=== PATIENT | female | born 1945 | race Caucasian/White ===

== ENCOUNTER → 2018-06-21 08:42 | Outpatient (CLI) | payer MEDICARE, SELFPAY ==
[2018-06-21 09:43] LABS: Cholesterol 189 mg/dL (140-199); Glucose 93 mg/dL (80-110); HDL Cholesterol 37 mg/dL (40-60); LDL Cholesterol Calculated 110 mg/dL (<100); Triglycerides 209 mg/dL (35-150)
[2018-06-21 11:32] LABS: Hep C Virus Ab w/Reflex Quant NEGATIVE s/c (NEGATIVE)
== END ==
PROVIDERS: PCP Family Medicine; Visit Provider Family Medicine
DX: E03.9 Hypothyroidism, unspecified (principal); Z13.1 Encounter for screening for diabetes mellitus; Z11.59 Encounter for screening for other viral diseases; Z13.220 Encounter for screening for lipoid disorders
CPT/HCPCS: 36415; 80061; 82947; 84443; 86803

== ENCOUNTER → 2018-09-17 09:02 | Outpatient (CLI) | payer MEDICARE, SELFPAY | PROVIDERS: PCP Family Medicine; Visit Provider Family Medicine | DX: E03.9 Hypothyroidism, unspecified (principal) | CPT/HCPCS: 36415; 84443 ==

== ENCOUNTER → 2018-12-17 08:08 | Outpatient (CLI) | payer MEDICARE, SELFPAY | PROVIDERS: PCP Family Medicine; Visit Provider Family Medicine | DX: E03.9 Hypothyroidism, unspecified (principal) | CPT/HCPCS: 36415; 84443 ==

== ENCOUNTER → 2019-12-07 09:27 | Outpatient (CLI) | payer MEDICARE, SELFPAY ==
[2019-12-07 10:00] LABS: Add Manual Diff / Slide Review NO; Basophils Absolute Auto 100 /uL (0-100); Basophils Percent Auto 0.9 % (0-2); Eosinophils Absolute Auto 400 /uL (0-450); Eosinophils Percent Auto 5.3 % (2-4); Hematocrit 38.1 % (36-46); Lymphocytes Absolute Auto 1800 /uL (1100-4500); Lymphocytes Percent Auto 27.6 % (25-40); Mean Corpuscular HGB Conc 34.2 % (30-36); Mean Corpuscular Hemoglobin 30.4 PG (26-34); Monocytes Absolute Auto 600 /uL (0-900); Monocytes Percent Auto 8.4 % (3-14); Neutrophils Absolute Auto 3800 /uL (1500-7000); Neutrophils Percent Auto 57.8 % (50-75); Platelet Count 211 X10^3/uL (150-400); Red Blood Cell Count 4.28 X10^6/uL (4.0-5.2); Red Cell Distribution Width 13.8 % (11.6-14.8); White Blood Cell Count 6.6 X10^3/uL (4.5-11.0)
[2019-12-07 11:17] LABS: Alanine Aminotransferase 24 IU/L (<35); Albumin Globulin Ratio 1.5 (1.0-2.8); Alkaline Phosphatase 76 U/L (38-126); Amylase 48 U/L (30-110); Aspartate Aminotransferase 31 IU/L (14-36); BUN Creatinine Ratio 15.6 (6-22); Bilirubin Total 0.6 mg/dL (0.2-1.3); Blood Urea Nitrogen 17 mg/dL (7-17); Calcium 9.2 mg/dL (8.4-10.2); Carbon Dioxide 28 mmol/L (22-32); Chloride 107 mmol/L (98-107); Estimated Glomerular Filt Rate 48.8 mL/min (>60); Globulin 2.7 g/dL (1.7-4.1); Glucose 90 mg/dL (80-110); HEMOLYSIS < 15 (0-50); Lipase 15 U/L (23-300); Potassium 4.5 mmol/L (3.4-5.1); Sodium 138 mmol/L (137-145); Total Protein 6.7 g/dL (6.3-8.2)
[2019-12-07 11:45] LABS: TSH w/ Reflex to FT4 0.45 uIU/mL (0.47-4.68)
[2019-12-07 12:19] LABS: Free T4, Direct Thyroxine 0.83 ng/dL (0.78-2.19)
== END ==
PROVIDERS: PCP Internal Medicine; Referring Provider Internal Medicine; Visit Provider Internal Medicine
DX: K21.0 Gastro-esophageal reflux disease with esophagitis (principal); E03.9 Hypothyroidism, unspecified
CPT/HCPCS: 36415; 80053; 82150; 83690; 84439; 84443; 85025

== ENCOUNTER 2022-07-01 11:08 | Emergency (ER) | payer OTHER, SELFPAY ==
[2022-07-01] VITALS (14 sets, daily range): BP systolic 169–200; BP diastolic 84–112; PULSE 63–73; RESP 16–28; TEMP 36.4; O2SAT 96–99; BMI 25.7
--- NOTE | 2022-07-01 11:38 | ED.HA ---
HPI - Headache General Chief Complaint: Headache Stated Complaint: tunnel vision/pressure in head/dizzy 1 hour ago Time Seen by Provider: 07/01/22 11:25 Mode of arrival: Ambulatory History of Present Illness HPI Narrative: Patient is a 76-year-old healthy female history of asthma presenting today right-sided blurry vision dizziness and headache. She reports that she was moving heavy [employer] machine while at work. She suddenly got some right partial blurry vision no loss of vision she then developed dizziness and headache. She sat down symptoms lasted for about 30 minutes and then resolved. She still has a mild headache. No numbness tingling or weakness no nausea vomiting no facial droop or difficulty speaking. She is now really only complaining of mild headache. He denies any curtain falling over her vision no blackness or any loss of vision. She denies any double vision. Related Data Home Medications Medication Instructions Recorded Confirmed sumatriptan succinate 50 mg tablet 50 mg PO Q2-4H PRN 06/09/18 06/09/18 (Imitrex) Previous Rx's Medication Instructions Recorded doxepin 25 mg capsule 50 mg PO DAILY #180 caps 08/10/19 levothyroxine 50 mcg tablet See Rx Instructions .Route 11/04/19 .COMPLEX #23 tabs fluticasone 250 mcg-salmeterol 50 See Rx Instructions .Route 01/04/20 mcg/dose blistr powdr for .COMPLEX #60 ea inhalation (Advair Diskus) Allergies Allergy/AdvReac Type Severity Reaction Status Date / Time prochlorperazine AdvReac Intermediate agitation Verified 07/01/22 11:22 [From Compazine] Review of Systems Review of Systems ROS Unobtainable: All systems reviewed & are unremarkable except as noted in HPI and below Patient History Medical History Asthma (~1949) Chicken pox (~1961) Hypothyroidism (~2009) Measles (~5) Mumps (~1954) Skin problem (~1999) Surgical History Anesthesia Cataract (~2009) History of hysterectomy (~1993) Status post LASIK surgery (~1998) Family History Mother Cancer Diabetes mellitus Heart disease Mental health problem Grandfather Diabetes mellitus Social History Smoking Status: Former smoker Smoking Status: Former smoker alcohol intake frequency: holidays/special occasions only Substance Use Type: does not use Exam Initial Vital Signs Initial Vital Signs: Vital Signs Temperature 97.5 F L 07/01/22 11:17 Pulse Rate 73 07/01/22 11:17 Respiratory Rate 16 07/01/22 11:17 Blood Pressure 200/103 H 07/01/22 11:17 Pulse Oximetry 98 07/01/22 11:17 Oxygen Delivery Method Room Air 07/01/22 11:17 GENERAL: Alert pleasant well-appearing 76-year-old female and in no acute distress. HEENT: Head atraumatic,EOMI, pupils reactive, face symmetric, moist mucous membranes CARDIOVASCULAR: Regular rate and rhythm without murmurs, rubs or gallops. RESPIRATORY: Breath sounds equal bilaterally, no wheezes rales or rhonchi. ABDOMEN: Soft, nontender. Normoactive bowel sounds all 4 quadrants. No guarding or rebound. EXTREMITIES: Normal range of motion, no clubbing or edema. Neurovascularly intact NEUROLOGICAL: Alert and oriented x4.Normal gait and speech. Cranial nerves II through XII grossly intact. Good dbwqry-ye-afvn, good jckb-or-iiro, strength equal bilaterally, no dysarthria or aphasia, sensation in tact to soft touch bilaterally, no visual changes, no facial droop SKIN: Warm, dry, no laceration, no petechiae, no rashes or lesions. Scores NIH Stroke Scale Level of Conciousness: Alert, keenly responsive Ask month/age: Answers both questions correctly. Open/close eyes, close hand: Performs both tasks correctly Best gaze horizontal: Normal Visual parker: No visual loss Facial palsy: Normal symetrical movement Left arm drift: No drift for full 10 sec Right arm drift: No drift for full 10 sec Left leg drift: No drift for full 5 sec Right leg drift: No drift for full 5 sec Limb ataxia: Absent Sensory on face/arms/legs: Normal, no sensory loss Best language: No aphasia, normal Dysarthria: Normal Extinction or inattention: No abnormality Total NIH Stroke scale score: 0 Course Orders Ordered: ED Orders 07/01/22 11:32 EKG-12 Lead Routine EKG-12 Lead Stat 07/01/22 11:40 Complete Blood Count AUTO DIFF Stat Comprehensive Metabolic Panel Stat Ethanol (ETOH) Stat PTT Partial Thromboplastin Vikash Stat Prothrombin Time INR Stat Troponin & CK Cardiac Panel Stat 07/01/22 11:49 CT angio head and neck Stat 07/01/22 12:19 COVID19 -Nasal RAPID Stat Vital Signs Vital signs: Vital Signs - 8 hr 07/01/22 11:17 07/01/22 11:20 07/01/22 11:21 Temperature 97.5 F L Pulse Rate 73 Respiratory Rate 16 Blood Pressure 200/103 H 200/103 H Pulse Oximetry 98 98 Oxygen Delivery Method Room Air 07/01/22 11:21 07/01/22 11:30 07/01/22 11:30 Temperature Pulse Rate 70 70 Respiratory Rate 28 H Blood Pressure 169/104 H Pulse Oximetry 98 97 Oxygen Delivery Method Room Air 07/01/22 12:00 07/01/22 12:00 07/01/22 12:26 Temperature Pulse Rate 66 73 Respiratory Rate 17 24 Blood Pressure 187/84 H Pulse Oximetry 96 98 Oxygen Delivery Method 07/01/22 12:26 07/01/22 12:30 07/01/22 12:31 Temperature Pulse Rate 67 68 Respiratory Rate 25 H 23 Blood Pressure 190/105 H Pulse Oximetry 96 96 Oxygen Delivery Method 07/01/22 12:31 07/01/22 13:00 07/01/22 13:00 Temperature Pulse Rate 65 Respiratory Rate 20 Blood Pressure 188/88 H 181/85 H Pulse Oximetry 97 Oxygen Delivery Method 07/01/22 13:30 07/01/22 13:30 07/01/22 13:44 Temperature Pulse Rate 67 73 Respiratory Rate 18 27 H Blood Pressure 181/97 H Pulse Oximetry 96 97 Oxygen Delivery Method 07/01/22 13:44 07/01/22 14:00 07/01/22 14:01 Temperature Pulse Rate 65 65 Respiratory Rate 24 22 Blood Pressure 188/112 H Pulse Oximetry 97 99 Oxygen Delivery Method 07/01/22 14:01 07/01/22 14:13 07/01/22 14:13 Temperature Pulse Rate 63 Respiratory Rate 17 Blood Pressure 172/90 H 176/105 H Pulse Oximetry 98 Oxygen Delivery Method MDM - Headache Lab Data 07/01/22 11:40 07/01/22 11:40 Labs: Lab Results 07/01/22 07/01/22 07/01/22 Range/Units 11:40 11:40 11:40 WBC 8.1 (4.5-11.0) X10^3/uL RBC 4.39 (4.0-5.2) X10^6/uL Hgb 12.8 (12.0-16.0) g/dL Hct 38.5 (36-46) % MCV 87.8 (80-100) fL MCH 29.2 (26-34) PG MCHC 33.3 (30-36) % RDW 13.5 (11.6-14.8) % Plt Count 222 (150-400) X10^3/uL Neut % (Auto) 62.9 (50-75) % Lymph % (Auto) 26.5 (25-40) % [place] % (Auto) 6.7 (3-14) % Eos % (Auto) 2.8 (2-4) % Baso % (Auto) 1.1 (0-2) % Neut # (Auto) 5100 (6069-3752) /uL Lymph # (Auto) 2200 (4776-7869) /uL [place] # (Auto) 500 (0-900) /uL Eos # (Auto) 200 (0-450) /uL Baso # (Auto) 100 (0-100) /uL PT 11.2 (10.1-12.7) SECONDS INR 1.0 (0.9-1.3) APTT 31 (26-36) SECONDS Sodium 137 (137-145) mmol/L Potassium 4.1 (3.4-5.1) mmol/L Chloride 104 (98-107) mmol/L Carbon Dioxide 25 (22-32) mmol/L BUN 25 H (7-17) mg/dL Creatinine 1.14 H (0.52-1.04) mg/dL Estimated GFR 49 L (>60) mL/min BUN/Creatinine Ratio 21.9 (6-22) Glucose 105 (80-110) mg/dL Calcium 9.8 (8.4-10.2) mg/dL Total Bilirubin 0.4 (0.2-1.3) mg/dL AST 37 H (14-36) IU/L ALT 23 (<35) IU/L Alkaline Phosphatase 76 (38-126) U/L Total Creatine Kinase 62 (30-135) U/L CK-MB (CK-2) TNP CK-MB (CK-2) Rel Index TNP Troponin I < 0.012 (0.01-0.034) ng/mL Total Protein 7.5 (6.3-8.2) g/dL Albumin 4.2 (3.5-5.0) g/dL Globulin 3.3 (1.7-4.1) g/dL Albumin/Globulin Ratio 1.3 (1.0-2.8) Ethyl Alcohol < 10 ( - 10) mg/dL SARS-CoV-2 (PCR) (Negative) 07/01/22 Range/Units 12:19 WBC (4.5-11.0) X10^3/uL RBC (4.0-5.2) X10^6/uL Hgb (12.0-16.0) g/dL Hct (36-46) % MCV (80-100) fL MCH (26-34) PG MCHC (30-36) % RDW (11.6-14.8) % Plt Count (150-400) X10^3/uL Neut % (Auto) (50-75) % Lymph % (Auto) (25-40) % [place] % (Auto) (3-14) % Eos % (Auto) (2-4) % Baso % (Auto) (0-2) % Neut # (Auto) (1563-0870) /uL Lymph # (Auto) (9737-3460) /uL [place] # (Auto) (0-900) /uL Eos # (Auto) (0-450) /uL Baso # (Auto) (0-100) /uL PT (10.1-12.7) SECONDS INR (0.9-1.3) APTT (26-36) SECONDS Sodium (137-145) mmol/L Potassium (3.4-5.1) mmol/L Chloride (98-107) mmol/L Carbon Dioxide (22-32) mmol/L BUN (7-17) mg/dL Creatinine (0.52-1.04) mg/dL Estimated GFR (>60) mL/min BUN/Creatinine Ratio (6-22) Glucose (80-110) mg/dL Calcium (8.4-10.2) mg/dL Total Bilirubin (0.2-1.3) mg/dL AST (14-36) IU/L ALT (<35) IU/L Alkaline Phosphatase (38-126) U/L Total Creatine Kinase (30-135) U/L CK-MB (CK-2) CK-MB (CK-2) Rel Index Troponin I (0.01-0.034) ng/mL Total Protein (6.3-8.2) g/dL Albumin (3.5-5.0) g/dL Globulin (1.7-4.1) g/dL Albumin/Globulin Ratio (1.0-2.8) Ethyl Alcohol ( - 10) mg/dL SARS-CoV-2 (PCR) Negative (Negative) Imaging Data CTA - brain/neck: Radiologist's Impression: PROCEDURE:? CT ANGIO HEAD AND NECK ? INDICATIONS:? dizzy right blurry vision ? TECHNIQUE:? Pre-contrast 4.5 mm thick sections acquired from the foramen magnum to the vertex.? After the administration of intravenous contrast, 1 mm thick sections acquired from the aortic arch through the [place] of [place].? Post-contrast 4.5 mm thick sections then re-acquired from the foramen magnum to the vertex.? 3-dimensional jzwxsxr-dteqfescu-xrsmwonvio (MIP) and/or volume rendering reformats were acquired of the central intracranial vasculature and neck separately. For radiation dose reduction, the following was used:? automated exposure control, adjustment of mA and/or kV according to patient size.? ? COMPARISON:? None. ? FINDINGS:? Image quality:? Excellent.? ? BRAIN:? The ventricular system and cortical sulci demonstrate atrophy, consistent for the patient's stated age. There are areas of hypodensity within the periventricular and subcortical white matter.? There is no acute intra-or extra axial fluid collection. No acute hemorrhage, mass lesion or midline shift. Brainstem is unremarkable. Globes are symmetrical. Sinuses are aerated. Osseous structures are intact. ? HEAD CT ANGIOGRAPHY:? Anterior circulation:? Intracranial internal carotid arteries are normal in size and flow.? The flow within the paired anterior cerebral arteries is normal and symmetric.? The flow within the middle cerebral arteries is normal and symmetric.? The anterior communicating artery is seen.? No aneurysms are seen.? ? Posterior circulation:? Visualized portions of the vertebral arteries demonstrate normal caliber, and join to form a normal appearing basilar artery.? Flow within the posterior cerebral arteries is normal and symmetric.? No aneurysms are seen.? ? NECK CT ANGIOGRAPHY:? Carotid system:? The great vessels demonstrate a conventional anatomy as they arise from the aortic arch.? The origins of the common carotid arteries appear patent.? The common carotid arteries demonstrate normal caliber and courses.? The bifurcation regions are both widely patent.? The internal carotid arteries demonstrate normal calibers and courses.? ? Posterior circulation:? The origins of the vertebral arteries both appear widely patent.? The more superior extracranial portions of both vertebral arteries also demonstrate normal courses and calibers.? They join to form a normal appearing basilar artery.? ? Soft tissues:? Visualized neck soft tissues demonstrate no suspicious abnormalities.? ? Bones:? No suspicious bony lesions.? Visualized cervical spine appears normally aligned.? IMPRESSION:? ? 1. No acute intracranial process. ? 2. Moderate atrophy and chronic microvascular ischemic changes. ? 3. No areas of hemodynamically significant stenosis, vascular occlusion or aneurysmal dilation within the anterior circulation. ? 4. No areas of hemodynamically significant stenosis, vascular occlusion or aneurysmal dilation within the posterior circulation. ? 5. No areas of hemodynamically significant stenosis, vascular occlusion or aneurysmal dilation within the neck vasculature. ? Any quantitative measurements of stenosis were performed using NASCET criteria.? ? ? Dictated by: Nelli Johnson M.D. on 07/01/2022 at 12:54 ? ? ECG Data Interpretation: Normal sinus rhythm rate 71 FL interval 150 QRS [address] changes no T-wave inversions, no priors MDM Narrative Medical decision making narrative: Patient 76-year-old female without significant past medical history presenting today with brief episode of dizziness headache and right-sided blurry vision. This she was pushing heavy [place] she. Symptoms lasted for roughly 30 minutes and have complete soft. She has no other focal deficits NIH stroke scale of 0. CT angio does not show any acute abnormality but does show moderate atrophy and chronic microvascular ischemic changes. Blood work is overall reassuring. This does not sound like she is had hemianopsia or actual visual field deficit. It does seem like some right blurry vision. Bedside ocular ultrasound does not show any retinal detachment. Patient's blood pressure is noted to be mildly elevated in the emergency department she does not have prior history of hypertension. She is quite anxious. I do not think hypertension is related to acute CVA. I do recommend that she monitor blood pressure at home. Discharge Plan Departure Patient Disposition: Home Clinical Impression: Dizziness, Headache Instructions: DI for Headache Activity Restrictions/Additional Instructions: *You have been diagnosed with a you had a small episode of vertigo today. *What to do: Please stay hydrated and rest. Please check your blood pressure 1 to 2 times daily record and follow-up with your PCP. Please stop smoking completely. Your CT scan today did show that you have some inflammation in your arteries in your brain. This puts you at risk for stroke *Continue to take medications as directed *Follow up with your primary care provider in 2-3 days or call [phone] *Return to ER if you should have facial drooping visual changes numbness tingling weakness difficulty speaking persistent dizziness or any new, worsening or concerning symptoms Prescriptions: No Action doxepin 25 mg capsule 50 mg PO DAILY Qty: 180 0RF Rx Instructions: needs to be seen for additional refills. 08/10/19 levothyroxine 50 mcg tablet See Rx Instructions .ROUTE .COMPLEX Qty: 23 0RF Dose Instruction: TAKE 1/4 TABLET (12.5MCG) BY MOUTH DAILY Rx Instructions: TAKE 1/4 TABLET (12.5MCG) BY MOUTH DAILY; PT NEEDS AN APPOINTMENT FOR REFILLS fluticasone propion-salmeterol [Advair Diskus] 250-50 mcg/dose blister with device See Rx Instructions .ROUTE .COMPLEX Qty: 60 0RF Dose Instruction: USE 1 INHALATION BY MOUTH TWICE DAILY Rx Instructions: USE 1 INHALATION BY MOUTH TWICE DAILY; PT NEEDS TO BE SEEN FOR REFILLS sumatriptan succinate [Imitrex] 50 mg tablet 50 mg PO Q2-4H PRN Referrals: Sarah Pacheco PA-C [Primary Care Provider] - Stand Alone Forms: Patient Portal/API
--- NOTE | 2022-07-01 11:49 | DI.CT.S_ITS ---
PROCEDURE: CT ANGIO HEAD AND NECK INDICATIONS: dizzy right blurry vision TECHNIQUE: Pre-contrast 4.5 mm thick sections acquired from the foramen magnum to the vertex. After the administration of intravenous contrast, 1 mm thick sections acquired from the aortic arch through the [place] of [place]. Post-contrast 4.5 mm thick sections then re-acquired from the foramen magnum to the vertex. 3-dimensional hgujboa-apppnnyib-ckfvqbpvbp (MIP) and/or volume rendering reformats were acquired of the central intracranial vasculature and neck separately. For radiation dose reduction, the following was used: automated exposure control, adjustment of mA and/or kV according to patient size. COMPARISON: None. FINDINGS: Image quality: Excellent. BRAIN: The ventricular system and cortical sulci demonstrate atrophy, consistent for the patient's stated age. There are areas of hypodensity within the periventricular and subcortical white matter. There is no acute intra-or extra axial fluid collection. No acute hemorrhage, mass lesion or midline shift. Brainstem is unremarkable. Globes are symmetrical. Sinuses are aerated. Osseous structures are intact. HEAD CT ANGIOGRAPHY: Anterior circulation: Intracranial internal carotid arteries are normal in size and flow. The flow within the paired anterior cerebral arteries is normal and symmetric. The flow within the middle cerebral arteries is normal and symmetric. The anterior communicating artery is seen. No aneurysms are seen. Posterior circulation: Visualized portions of the vertebral arteries demonstrate normal caliber, and join to form a normal appearing basilar artery. Flow within the posterior cerebral arteries is normal and symmetric. No aneurysms are seen. NECK CT ANGIOGRAPHY: Carotid system: The great vessels demonstrate a conventional anatomy as they arise from the aortic arch. The origins of the common carotid arteries appear patent. The common carotid arteries demonstrate normal caliber and courses. The bifurcation regions are both widely patent. The internal carotid arteries demonstrate normal calibers and courses. Posterior circulation: The origins of the vertebral arteries both appear widely patent. The more superior extracranial portions of both vertebral arteries also demonstrate normal courses and calibers. They join to form a normal appearing basilar artery. Soft tissues: Visualized neck soft tissues demonstrate no suspicious abnormalities. Bones: No suspicious bony lesions. Visualized cervical spine appears normally aligned. IMPRESSION: 1. No acute intracranial process. 2. Moderate atrophy and chronic microvascular ischemic changes. 3. No areas of hemodynamically significant stenosis, vascular occlusion or aneurysmal dilation within the anterior circulation. 4. No areas of hemodynamically significant stenosis, vascular occlusion or aneurysmal dilation within the posterior circulation. 5. No areas of hemodynamically significant stenosis, vascular occlusion or aneurysmal dilation within the neck vasculature. Any quantitative measurements of stenosis were performed using NASCET criteria. Dictated by: Nelli Johnson M.D. on 07/01/2022 at 12:54 Approved by: Nelli Johnson M.D. on 07/01/2022 at 13:06
[2022-07-01 12:03] LABS: Add Manual Diff / Slide Review NO; Basophils Absolute Auto 100 /uL (0-100); Basophils Percent Auto 1.1 % (0-2); Eosinophils Absolute Auto 200 /uL (0-450); Eosinophils Percent Auto 2.8 % (2-4); Hematocrit 38.5 % (36-46); Hemoglobin 12.8 g/dL (12.0-16.0); Lymphocytes Absolute Auto 2200 /uL (1100-4500); Lymphocytes Percent Auto 26.5 % (25-40); Mean Corpuscular HGB Conc 33.3 % (30-36); Mean Corpuscular Hemoglobin 29.2 PG (26-34); Mean Corpuscular Volume 87.8 fL (80-100); Monocytes Absolute Auto 500 /uL (0-900); Monocytes Percent Auto 6.7 % (3-14); Neutrophils Absolute Auto 5100 /uL (1500-7000); Neutrophils Percent Auto 62.9 % (50-75); Platelet Count 222 X10^3/uL (150-400); Red Blood Cell Count 4.39 X10^6/uL (4.0-5.2); Red Cell Distribution Width 13.5 % (11.6-14.8); White Blood Cell Count 8.1 X10^3/uL (4.5-11.0)
[2022-07-01 12:04] LABS: Prothrombin Time 11.2 SECONDS (10.1-12.7)
[2022-07-01 12:06] LABS: PTT Partial Thromboplastin Tim 31 SECONDS (26-36)
[2022-07-01 12:10] LABS: Alanine Aminotransferase 23 IU/L (<35); Albumin 4.2 g/dL (3.5-5.0); Albumin Globulin Ratio 1.3 (1.0-2.8); Alkaline Phosphatase 76 U/L (38-126); Aspartate Aminotransferase 37 IU/L (14-36); BUN Creatinine Ratio 21.9 (6-22); Bilirubin Total 0.4 mg/dL (0.2-1.3); Blood Urea Nitrogen 25 mg/dL (7-17); Calcium 9.8 mg/dL (8.4-10.2); Carbon Dioxide 25 mmol/L (22-32); Chloride 104 mmol/L (98-107); Creatine Kinase 62 U/L (30-135); Estimated Glomerular Filt Rate 49 mL/min (>60); Ethanol (ETOH) < 10 mg/dL; Globulin 3.3 g/dL (1.7-4.1); Glucose 105 mg/dL (80-110); HEMOLYSIS < 15 (0-50); Potassium 4.1 mmol/L (3.4-5.1); Sodium 137 mmol/L (137-145); Total Protein 7.5 g/dL (6.3-8.2)
[2022-07-01 12:20] LABS: Troponin I < 0.012 ng/mL (0.01-0.034)
[2022-07-01 12:42] LABS: COVID19 -Nasal RAPID Negative (Negative)
== END 2022-07-01 14:25 | disposition home or self-care (01) ==
PROVIDERS: Emergency Provider Emergency Medicine; PCP Student in an Organized Health Care Education/Training Program
DX: R42 Dizziness and giddiness (principal); R51.9 Headache, unspecified; I10 Essential (primary) hypertension; Z20.822 Contact with and (suspected) exposure to COVID-19
CPT/HCPCS: 70496; 70498; 80053; 80320; 82550; 84484; 85025; 85610; 85730; 87635; 93005; 99284; C9803; Q9967

== ENCOUNTER → 2024-03-16 07:37 | Outpatient (CLI) | payer MEDICARE, SELFPAY ==
--- NOTE | 2024-03-16 | DI.US.S_ITS ---
PROCEDURE: US RENAL COMPLETE INDICATIONS: Chronic kidney disease, stage 3b TECHNIQUE: Real-time scanning was performed of the kidneys and bladder, with image documentation. COMPARISON: [facility], CT, CT LOW DOSE LUNG CA SCREENING, 10/23/2023, 11:24. FINDINGS: Kidneys: Mildly atrophic kidneys measuring 8 centimeters on the right and 9 centimeters on the left. No hydronephrosis bilaterally. No solid renal mass. 1.2 centimeter right renal cyst is present. Bladder: Patient did not void. Bladder volume is 41 cc. Ureteral jets were not seen. Bladder was under distended Miscellaneous: No free pelvic fluid. IMPRESSION: No hydronephrosis. Patient did not void for this exam. No solid renal mass. Mildly atrophic kidneys bilaterally. Dictated by: Maximilian Mendiola M.D. on 03/16/2024 at 16:21 Approved by: Maximilian Mendiola M.D. on 03/16/2024 at 16:23
== END ==
LOC: US 07:37
PROVIDERS: PCP Family Medicine; Referring Provider Family Medicine; Visit Provider Family Medicine
DX: N18.32 Chronic kidney disease, stage 3b (principal); N26.1 Atrophy of kidney (terminal)
CPT/HCPCS: 76770